=== PATIENT | female | born 1950 | race African-American/Black ===

== ENCOUNTER 2020-01-03 13:01 | Inpatient (IN) ==
[2020-01-03] MEDS ORDERED: AZITHROMYCIN INJ 500 MG in SODIUM CHLORIDE 0.9% 250 ML IV STA (13:28)
[2020-01-03] MEDS ORDERED: PIPERACILLIN/TAZOBACTAM 3,375 MG in SODIUM CHLORIDE 0.9% 100 ML IV STA (13:28)
[2020-01-03] MEDS ORDERED: ACETAMINOPHEN 500 MG TABLET ONE (13:57)
[2020-01-03 14:02] LABS: Basophils % 0.7 % (0.0-0.8); Eosinophils % 1.1 % (0.00-10.9); Hematocrit 31.7 VOL% (35.7-47.0); Hemoglobin 9.9 GM/DL (12.0-16.0); Lymphocytes # 0.7 10*3/uL (1.4-4.0); Lymphocytes % 25.5 % (21.3-54.2); Mean Corpuscular HGB Conc 31.2 GM/DL (32-36); Mean Corpuscular Volume 97.2 FL (87-102); Monocytes % 13.1 % (1.7-12.7); Neutrophils % 59.6 % (38.7-73.9); Platelet Count 103 T/CUMM (130-400); Red Blood Count 3.26 MC/CUMM (3.8-5.5); Red Cell Distribution Width 15.8 % (9.3-17.3); White Blood Count 2.7 T/CUMM (4-12)
[2020-01-03] MEDS ORDERED: ACETAMINOPHEN 650 MG SUPP RECTAL ONE (14:02)
[2020-01-03 14:10] LABS: INR 1.1; PT Patient Result 11.5 SECS (9.8-11.9)
[2020-01-03] MEDS ORDERED: ACETAMINOPHEN 500 MG TABLET PO STA (14:17)
[2020-01-03 14:20] LABS: Albumin 3.1 G/DL (3.4-5.0); Bilirubin,Total 0.5 MG/DL (0.2-1.0); Calcium 8.5 MG/DL (8.5-10.1); Ferritin 1450.3 ng/ml (8-252); Total Protein 7.2 G/DL (6.4-8.3)
[2020-01-03] MEDS ORDERED: GLUCAGON 1 MG VIAL IM PRN (15:39)
[2020-01-03] MEDS ORDERED: DEXTROSE 10% 250 ML BAG IV PRN (15:39)
[2020-01-03] MEDS ORDERED: VANCOMYCIN INJ 1,500 MG in SODIUM CHLORIDE 0.9% 500 ML IV ONE (18:00)
[2020-01-03] MEDS: INSULIN LISPRO 100 UNIT/ML SUBCUT SCH ×2 (18:04→20:16)
[2020-01-03] MEDS: SODIUM CHLORIDE 0.9% 1,000 ML IV SCH (18:14)
[2020-01-03] MEDS: HEPARIN 5,000 UNIT/1 ML VIAL SUBCUT SCH (18:15)
[2020-01-04] MEDS: PIPERACILLIN/TAZOBACTAM 3,375 MG in SODIUM CHLORIDE 0.9% 100 ML IV SCH ×2 (03:00→15:45)
[2020-01-04] MEDS: HEPARIN 5,000 UNIT/1 ML VIAL SUBCUT SCH ×2 (03:24→17:38)
[2020-01-04] MEDS: ACETAMINOPHEN 500 MG TABLET PO PRN (03:25)
[2020-01-04 06:14] LABS: Basophils % 0.7 % (0.0-0.8); Hematocrit 31.3 VOL% (35.7-47.0); Hemoglobin 9.7 GM/DL (12.0-16.0); Immature Granulocytes % 0.7 %; Immature Granulocytes Absolute 0.02 #; Lymphocytes # 0.4 10*3/uL (1.4-4.0); Lymphocytes % 12.3 % (21.3-54.2); Mean Corpuscular Volume 97.5 FL (87-102); Mean Platelet Volume 10.5 FL (9.6-12.0); Monocytes % 8.4 % (1.7-12.7); Neutrophils % 77.9 % (38.7-73.9); Red Blood Count 3.21 MC/CUMM (3.8-5.5); Red Cell Distribution Width 15.8 % (9.3-17.3); White Blood Count 2.9 T/CUMM (4-12)
[2020-01-04 06:38] LABS: Platelet Count 85 T/CUMM (130-400)
[2020-01-04 08:29] LABS: Albumin 2.7 G/DL (3.4-5.0); Bilirubin,Total 0.6 MG/DL (0.2-1.0); Total Protein 6.7 G/DL (6.4-8.3)
[2020-01-04] MEDS: INSULIN LISPRO 100 UNIT/ML SUBCUT SCH ×4 (09:33→20:05)
[2020-01-04] MEDS: SODIUM CHLORIDE 0.9% 1,000 ML IV SCH ×2 (09:33→23:45)
[2020-01-04] MEDS ORDERED: VANCOMYCIN INJ 500 MG in SODIUM CHLORIDE 0.9% 250 ML IV PRN (17:00)
[2020-01-04] MEDS ORDERED: hydrALAZINE 20 MG/1 ML VIAL IV PRN (17:23)
[2020-01-05] MEDS: PIPERACILLIN/TAZOBACTAM 3,375 MG in SODIUM CHLORIDE 0.9% 100 ML IV SCH ×2 (01:40→13:41)
[2020-01-05] MEDS: HEPARIN 5,000 UNIT/1 ML VIAL SUBCUT SCH ×2 (04:31→16:51)
[2020-01-05] MEDS: ACETAMINOPHEN 500 MG TABLET PO PRN ×2 (04:32→20:54)
[2020-01-05 06:37] LABS: Hematocrit 32.2 VOL% (35.7-47.0); Hemoglobin 9.9 GM/DL (12.0-16.0); Immature Granulocytes % 0.3 %; Immature Granulocytes Absolute 0.01 #; Lymphocytes # 0.8 10*3/uL (1.4-4.0); Lymphocytes % 25.8 % (21.3-54.2); Mean Corpuscular HGB Conc 30.7 GM/DL (32-36); Mean Corpuscular Volume 97.9 FL (87-102); Mean Platelet Volume 11.1 FL (9.6-12.0); Monocytes % 9.9 % (1.7-12.7); Platelet Count 92 T/CUMM (130-400); Red Blood Count 3.29 MC/CUMM (3.8-5.5); Red Cell Distribution Width 15.9 % (9.3-17.3)
[2020-01-05 07:06] LABS: Osmolality,Calculated 284.5 MOS/KG (273-304)
[2020-01-05 07:44] LABS: Anisocytosis 1+; Band Neutrophils 11 % (0-10); Hypochromasia Slight; Lymphocytes 27 % (20-55); Macrocytosis 1+; Metamyelocytes 2 %; Nucleated Red Blood Cells 1 (0-5); Platelet Estimate Decreased; Segmented Neutrophils 53 % (50-85); Total Cells Counted 100
[2020-01-05 07:45] LABS: Poikilocytosis Slight
[2020-01-05] MEDS: INSULIN LISPRO 100 UNIT/ML SUBCUT SCH ×4 (08:00→23:46)
[2020-01-05] MEDS: HYDROXYCHLOROQUINE 200 MG TABLET PO SCH ×2 (11:00→20:53)
[2020-01-05] MEDS: ZINC SULFATE 220 MG CAPSULE PO SCH (11:00)
[2020-01-05] MEDS ORDERED: guaiFENesin 200 MG/10 ML UDCUP PO PRN (11:03)
[2020-01-05] MEDS: METOPROLOL TARTRATE 50 MG TABLET PO SCH ×3 (11:40→23:49)
[2020-01-05] MEDS: amLODIPine 10 MG TABLET PO SCH (11:40)
[2020-01-05] MEDS: SODIUM CHLORIDE 0.9% 1,000 ML IV SCH ×2 (13:16→13:17)
[2020-01-05] MEDS: SEVELAMER CARBONATE 800 MG TABLET PO SCH ×3 (15:55→23:50)
[2020-01-05] MEDS ORDERED: VANCOMYCIN INJ 500 MG in SODIUM CHLORIDE 0.9% 100 ML IV ONE ×2 (16:00→18:00)
[2020-01-05] MEDS: CINACALCET 30 MG TABLET PO SCH (16:50)
[2020-01-06] MEDS: PIPERACILLIN/TAZOBACTAM 3,375 MG in SODIUM CHLORIDE 0.9% 100 ML IV SCH ×2 (02:35→16:10)
[2020-01-06] MEDS: HEPARIN 5,000 UNIT/1 ML VIAL SUBCUT SCH ×2 (04:31→16:10)
[2020-01-06] MEDS: INSULIN LISPRO 100 UNIT/ML SUBCUT SCH ×4 (10:36→21:17)
[2020-01-06] MEDS: METOPROLOL TARTRATE 50 MG TABLET PO SCH ×2 (10:37→21:17)
[2020-01-06] MEDS: HYDROXYCHLOROQUINE 200 MG TABLET PO SCH ×2 (10:37→21:17)
[2020-01-06] MEDS: SEVELAMER CARBONATE 800 MG TABLET PO SCH ×3 (10:37→21:17)
[2020-01-06] MEDS: ACETAMINOPHEN 500 MG TABLET PO PRN (10:38)
[2020-01-06] MEDS: amLODIPine 10 MG TABLET PO SCH (10:38)
[2020-01-06] MEDS: CINACALCET 30 MG TABLET PO SCH (16:10)
[2020-01-07] MEDS: PIPERACILLIN/TAZOBACTAM 3,375 MG in SODIUM CHLORIDE 0.9% 100 ML IV SCH ×2 (01:25→13:37)
[2020-01-07] MEDS: ACETAMINOPHEN 500 MG TABLET PO PRN ×3 (01:25→16:32)
[2020-01-07] MEDS: HEPARIN 5,000 UNIT/1 ML VIAL SUBCUT SCH ×2 (04:55→16:12)
[2020-01-07] MEDS: ZINC SULFATE 220 MG CAPSULE PO SCH (09:09)
[2020-01-07] MEDS: amLODIPine 10 MG TABLET PO SCH (09:09)
[2020-01-07] MEDS: HYDROXYCHLOROQUINE 200 MG TABLET PO SCH (09:09)
[2020-01-07] MEDS: METOPROLOL TARTRATE 50 MG TABLET PO SCH ×2 (09:09→20:30)
[2020-01-07] MEDS: SEVELAMER CARBONATE 800 MG TABLET PO SCH ×3 (09:09→20:30)
[2020-01-07] MEDS: INSULIN LISPRO 100 UNIT/ML SUBCUT SCH ×4 (09:14→21:47)
[2020-01-07] MEDS: CINACALCET 30 MG TABLET PO SCH (16:28)
[2020-01-07] MEDS: INSULIN ASPART PROTAMINE/ASPART 70/30 100 UNIT/ML SUBCUT SCH (20:30)
[2020-01-08] MEDS: ACETAMINOPHEN 500 MG TABLET PO PRN (00:09)
[2020-01-08] MEDS ORDERED: KETOROLAC 15 MG/1 ML VIAL IV ONE (01:30)
[2020-01-08] MEDS: PIPERACILLIN/TAZOBACTAM 3,375 MG in SODIUM CHLORIDE 0.9% 100 ML IV SCH ×2 (01:35→14:53)
[2020-01-08] MEDS: HEPARIN 5,000 UNIT/1 ML VIAL SUBCUT SCH ×2 (04:09→16:31)
[2020-01-08 07:00] LABS: Basophils % 0.8 % (0.0-0.8); Eosinophils % 0.4 % (0.00-10.9); Hematocrit 30.5 VOL% (35.7-47.0); Hemoglobin 9.6 GM/DL (12.0-16.0); Immature Granulocytes % 0.8 %; Immature Granulocytes Absolute 0.02 #; Lymphocytes # 0.5 10*3/uL (1.4-4.0); Lymphocytes % 17.5 % (21.3-54.2); Mean Corpuscular HGB Conc 31.5 GM/DL (32-36); Mean Corpuscular Volume 94.4 FL (87-102); Mean Platelet Volume 12.5 FL (9.6-12.0); Monocytes % 3.8 % (1.7-12.7); Neutrophils % 76.7 % (38.7-73.9); Platelet Count 85 T/CUMM (130-400); Red Blood Count 3.23 MC/CUMM (3.8-5.5); Red Cell Distribution Width 16.8 % (9.3-17.3); White Blood Count 2.6 T/CUMM (4-12)
[2020-01-08 07:27] LABS: Calcium 8.3 MG/DL (8.5-10.1); Osmolality,Calculated 285.8 MOS/KG (273-304)
[2020-01-08 07:28] LABS: Hypochromasia 1+; Ovalocytes Slight; Platelet Estimate Decreased
[2020-01-08] MEDS: amLODIPine 10 MG TABLET PO SCH (08:58)
[2020-01-08] MEDS: SEVELAMER CARBONATE 800 MG TABLET PO SCH ×3 (08:58→16:31)
[2020-01-08] MEDS: METOPROLOL TARTRATE 50 MG TABLET PO SCH ×2 (08:58→20:22)
[2020-01-08] MEDS: allopurinoL 100 MG TABLET PO SCH (08:59)
[2020-01-08] MEDS: CITALOPRAM 20 MG TABLET PO SCH (08:59)
[2020-01-08] MEDS: INSULIN LISPRO 100 UNIT/ML SUBCUT SCH ×4 (09:34→22:01)
[2020-01-08] MEDS: CINACALCET 30 MG TABLET PO SCH (16:31)
[2020-01-08] MEDS: INSULIN ASPART PROTAMINE/ASPART 70/30 100 UNIT/ML SUBCUT SCH (21:50)
[2020-01-09] MEDS: PIPERACILLIN/TAZOBACTAM 3,375 MG in SODIUM CHLORIDE 0.9% 100 ML IV SCH ×2 (03:54→14:32)
[2020-01-09] MEDS: HEPARIN 5,000 UNIT/1 ML VIAL SUBCUT SCH ×2 (03:55→17:39)
[2020-01-09] MEDS: INSULIN LISPRO 100 UNIT/ML SUBCUT SCH ×4 (09:24→21:22)
[2020-01-09] MEDS: SEVELAMER CARBONATE 800 MG TABLET PO SCH ×3 (09:24→17:39)
[2020-01-09] MEDS: allopurinoL 100 MG TABLET PO SCH (09:25)
[2020-01-09] MEDS: amLODIPine 10 MG TABLET PO SCH (09:25)
[2020-01-09] MEDS: METOPROLOL TARTRATE 50 MG TABLET PO SCH ×2 (09:25→21:23)
[2020-01-09] MEDS: CITALOPRAM 20 MG TABLET PO SCH (09:25)
[2020-01-09 10:15] LABS: Basophils % 0.4 % (0.0-0.8); Eosinophils # 0.1 10*3/uL (0.0-0.87); Eosinophils % 1.8 % (0.00-10.9); Hematocrit 31.3 VOL% (35.7-47.0); Hemoglobin 9.9 GM/DL (12.0-16.0); Immature Granulocytes % 1.1 %; Immature Granulocytes Absolute 0.03 #; Lymphocytes # 0.3 10*3/uL (1.4-4.0); Lymphocytes % 10.4 % (21.3-54.2); Mean Corpuscular HGB Conc 31.6 GM/DL (32-36); Mean Corpuscular Volume 93.4 FL (87-102); Monocytes % 3.2 % (1.7-12.7); Neutrophils % 83.1 % (38.7-73.9); Platelet Count 125 T/CUMM (130-400); Red Blood Count 3.35 MC/CUMM (3.8-5.5); Red Cell Distribution Width 17.6 % (9.3-17.3); White Blood Count 2.8 T/CUMM (4-12)
[2020-01-09 10:36] LABS: Band Neutrophils 3 % (0-10); Burr Cells Few; Eosinophils 3 % (0-10); Hypochromasia 1+; Lymphocytes 8 % (20-55); Microcytosis 1+; Segmented Neutrophils 85 % (50-85); Total Cells Counted 100
[2020-01-09 10:37] LABS: Acanthocytes Few; Ovalocytes Slight; Platelet Estimate Adequate; Target Cells Slight
[2020-01-09 14:05] LABS: Calcium 8.8 MG/DL (8.5-10.1)
[2020-01-09] MEDS: CINACALCET 30 MG TABLET PO SCH (17:39)
[2020-01-09] MEDS: INSULIN ASPART PROTAMINE/ASPART 70/30 100 UNIT/ML SUBCUT SCH (21:22)
[2020-01-10] MEDS: HEPARIN 5,000 UNIT/1 ML VIAL SUBCUT SCH (04:57)
[2020-01-10] MEDS: PIPERACILLIN/TAZOBACTAM 3,375 MG in SODIUM CHLORIDE 0.9% 100 ML IV SCH (04:57)
[2020-01-10 05:30] LABS: Basophils % 0.4 % (0.0-0.8); Eosinophils # 0.1 10*3/uL (0.0-0.87); Eosinophils % 3.2 % (0.00-10.9); Hematocrit 29.1 VOL% (35.7-47.0); Immature Granulocytes % 1.1 %; Immature Granulocytes Absolute 0.03 #; Lymphocytes # 0.4 10*3/uL (1.4-4.0); Lymphocytes % 15.1 % (21.3-54.2); Mean Corpuscular HGB Conc 30.9 GM/DL (32-36); Mean Corpuscular Volume 93.3 FL (87-102); Mean Platelet Volume 12.5 FL (9.6-12.0); Monocytes % 3.2 % (1.7-12.7); Platelet Count 129 T/CUMM (130-400); Red Blood Count 3.12 MC/CUMM (3.8-5.5); Red Cell Distribution Width 17.6 % (9.3-17.3); White Blood Count 2.9 T/CUMM (4-12)
[2020-01-10 05:52] LABS: Calcium 8.1 MG/DL (8.5-10.1); Osmolality,Calculated 286.3 MOS/KG (273-304)
[2020-01-10 05:55] LABS: Acanthocytes Few; Atypical Lymphocytes Few; Burr Cells Few; Eosinophils 3 % (0-10); Hypochromasia 1+; Lymphocytes 17 % (20-55); Microcytosis 1+; Segmented Neutrophils 78 % (50-85); Total Cells Counted 100
[2020-01-10 05:56] LABS: Ovalocytes Few; Platelet Estimate Adequate; Tear Drop Cells Slight
[2020-01-10] MEDS: INSULIN LISPRO 100 UNIT/ML SUBCUT SCH ×2 (09:51→11:27)
[2020-01-10] MEDS: amLODIPine 10 MG TABLET PO SCH (10:05)
[2020-01-10] MEDS: SEVELAMER CARBONATE 800 MG TABLET PO SCH ×2 (10:05→14:08)
[2020-01-10] MEDS: METOPROLOL TARTRATE 50 MG TABLET PO SCH (10:05)
[2020-01-10] MEDS: CITALOPRAM 20 MG TABLET PO SCH (10:05)
[2020-01-10] MEDS: allopurinoL 100 MG TABLET PO SCH (10:06)
[2020-01-10 11:47] VITALS: BP 111/59
== END 2020-01-10 15:12 | disposition home or self-care (01) | DRG 871 ==
LOC: EDUNIT# → EDBD → N.ED 13:01 → SUATTDRO 15:39 → N.EDINP 15:39 → N.2E 16:12
PROVIDERS: ADMIT Internal Medicine; ATTEND Internal Medicine Cardiovascular Disease

== ENCOUNTER 2020-04-05 08:55 | Inpatient (IN) ==
[2020-04-05] MEDS ORDERED: SODIUM CHLORIDE 0.9% 1,000 ML IV STA (09:49)
[2020-04-05] MEDS ORDERED: cefTRIAXone 1,000 MG in SODIUM CHLORIDE 0.9% 100 ML IV STA (09:49)
[2020-04-05 10:04] LABS: Hemoglobin 9.1 GM/DL (12.0-16.0); Red Cell Distribution Width 14.7 % (9.3-17.3)
[2020-04-05 10:11] LABS: Albumin 1.8 G/DL (3.4-5.0); Basophils % 0.9 % (0.0-0.8); Bilirubin,Total 1.5 MG/DL (0.2-1.0); Calcium 10.7 MG/DL (8.5-10.1); Hematocrit 27.1 VOL% (35.7-47.0); Immature Granulocytes % 0.5 %; Immature Granulocytes Absolute 0.01 #; Lymphocytes # 0.3 10*3/uL (1.4-4.0); Lymphocytes % 16.1 % (21.3-54.2); Mean Corpuscular HGB Conc 33.6 GM/DL (32-36); Mean Corpuscular Volume 92.5 FL (87-102); Monocytes % 8.1 % (1.7-12.7); Neutrophils % 74.4 % (38.7-73.9); Red Blood Count 2.93 MC/CUMM (3.8-5.5); Total Protein 4.5 G/DL (6.4-8.3); White Blood Count 2.1 T/CUMM (4-12)
[2020-04-05 10:17] LABS: Platelet Count 51 T/CUMM (130-400)
[2020-04-05 10:20] LABS: Troponin I 0.115 NG/ML (0.00-0.045)
[2020-04-05] MEDS ORDERED: cefTRIAXone 1,000 MG VIAL ONE (10:22)
[2020-04-05] MEDS ORDERED: SODIUM CHLORIDE 0.9% 100 ML IV ONE (10:22)
[2020-04-05] MEDS ORDERED: MAGNESIUM SULF RIDER 2 GM in PREMIX 1 EACH IV STA (11:06)
[2020-04-05] MEDS ORDERED: SODIUM CHLORIDE 0.9% 1,000 ML IV SCH (11:30)
[2020-04-05 11:35] LABS: Basophils % 0.7 % (0.0-0.8); Hemoglobin 8.3 GM/DL (12.0-16.0); Lymphocytes # 0.3 10*3/uL (1.4-4.0); Lymphocytes % 16.6 % (21.3-54.2); Mean Corpuscular HGB Conc 33.2 GM/DL (32-36); Mean Corpuscular Volume 93.6 FL (87-102); Neutrophils % 78.7 % (38.7-73.9); Red Blood Count 2.67 MC/CUMM (3.8-5.5); White Blood Count 1.5 T/CUMM (4-12)
[2020-04-05 11:40] LABS: Platelet Count 45 T/CUMM (130-400)
[2020-04-05] MEDS ORDERED: MAGNESIUM SULF RIDER 50 ML IV ONE (11:48)
[2020-04-05 11:49] LABS: Band Neutrophils 8 % (0-10); Lymphocytes 15 % (20-55); Metamyelocytes 5 %; Segmented Neutrophils 67 % (50-85); Total Cells Counted 100
[2020-04-05] MEDS ORDERED: POTASSIUM CHLORIDE RIDER 100 ML IV ONE ×2 (11:49)
[2020-04-05 11:51] LABS: Calcium 10.4 MG/DL (8.5-10.1); Osmolality,Calculated 289.8 MOS/KG (273-304)
[2020-04-05 11:52] LABS: Hypochromasia 2+; Microcytosis Slight; Target Cells Slight
[2020-04-05 11:53] LABS: Ovalocytes Few; Platelet Estimate Decreased
[2020-04-05 12:04] LABS: INR 1.5; PT Patient Result 16.2 SECS (9.8-11.9); Partial Thromboplastin Time 72.2 SECS (23.9-33.8)
[2020-04-05] MEDS ORDERED: ACETAMINOPHEN 325 MG TABLET PO PRN (12:06)
[2020-04-05] MEDS ORDERED: LACTULOSE 20 GM/30 ML UDCUP PO PRN (12:06)
[2020-04-05] MEDS ORDERED: ONDANSETRON 4 MG/2 ML VIAL IV PRN (12:06)
[2020-04-05] MEDS: NOREPINEPHRINE 8 MG in SODIUM CHLORIDE 0.9% 242 ML IV PRN ×2 (12:10→22:31)
[2020-04-05 12:30] LABS: Acanthocytes 1+; Anisocytosis 2+; Elliptocytes 1+; Lymphocytes 19 % (20-55); Platelet Estimate Adequate; Segmented Neutrophils 54 % (50-85); Total Cells Counted 100
[2020-04-05 12:31] LABS: Reactive Lymphocytes Slight
[2020-04-05] MEDS ORDERED: AMIODARONE 150 MG/3 ML VIAL ONE (12:33)
[2020-04-05] MEDS ORDERED: NOREPINEPHRINE 4 MG/4 ML VIAL IV ONE ×2 (12:34)
[2020-04-05] MEDS ORDERED: AMIODARONE INJ 150 MG in DEXTROSE 5% 100 ML IV ONE (12:36)
[2020-04-05] MEDS: POTASSIUM CHLORIDE RIDER 10 MEQ in PREMIX 1 EACH IV SCH ×2 (12:45→14:06)
[2020-04-05] MEDS ORDERED: AMIODARONE INJ 450 MG in DEXTROSE 5% 241 ML IV SCH ×2 (13:00→20:00)
[2020-04-05] MEDS ORDERED: VANCOMYCIN INJ 1,000 MG in SODIUM CHLORIDE 0.9% 250 ML IV PRN (14:26)
[2020-04-05] MEDS ORDERED: ALBUMIN 25% 50 GM in PREMIX 1 EACH IV ONE (14:30)
[2020-04-05 15:42] LABS: ABG Base Excess -4.2 MMOL/L (-2.5-2.5); ABG HCO3 20.7 MMOL/L (20-26); ABG Oxygen Saturation 82.4 % (95-100); ABG PCO2 51.3 MM HG (35-48); ABG PO2 51.2 MM HG (80-95); ABG TCO2 21.7 MMOL/L (23-27); Pt O2 Delivery Device Venturi Mask
[2020-04-05] MEDS ORDERED: VANCOMYCIN INJ 1,000 MG in SODIUM CHLORIDE 0.9% 250 ML IV ONE (16:00)
[2020-04-05] MEDS: HEPARIN DRIP 25,000 UNITS/500 ML PREMIX IV SCH (16:00)
[2020-04-05] MEDS: PIPERACILLIN/TAZOBACTAM 3,375 MG in SODIUM CHLORIDE 0.9% 100 ML IV SCH (16:22)
[2020-04-05] MEDS ORDERED: MIDAZOLAM 2 MG/2 ML VIAL IV ONE (16:50)
[2020-04-05] MEDS ORDERED: MIDAZOLAM 2 MG/2 ML VIAL ONE (16:52)
[2020-04-05] MEDS: HYDROCORTISONE 100 MG VIAL IV SCH (17:48)
[2020-04-05 17:50] LABS: ABG Base Excess -4.6 MMOL/L (-2.5-2.5); ABG HCO3 20.6 MMOL/L (20-26); ABG PCO2 25.4 MM HG (35-48); ABG PH 7.463 (7.35-7.45); ABG TCO2 16.8 MMOL/L (23-27); Pt O2 Delivery Device Ventilator
[2020-04-05] MEDS ORDERED: DEXTROSE 50% 25 GM/50 ML VIAL IV ONE (17:52)
[2020-04-05] MEDS: DEXTROSE 50% 25 GM/50 ML VIAL IV PRN ×2 (18:01→18:46)
[2020-04-05] MEDS ORDERED: DEXTROSE 10% 1,000 ML IV SCH (19:00)
[2020-04-05] MEDS ORDERED: GLUCAGON 1 MG VIAL IM PRN (19:12)
[2020-04-05] MEDS: ACETYLCYSTEINE 20% 800 MG/4 ML VIAL RESP TX SCH (19:30)
[2020-04-05] MEDS: ALBUTEROL 2.5 MG/3 ML NEB RESP TX PRN (19:37)
[2020-04-05 20:09] LABS: ABG Base Excess -8.3 MMOL/L (-2.5-2.5); ABG HCO3 15.6 MMOL/L (20-26); ABG Oxygen Saturation 98.9 % (95-100); ABG PCO2 26.1 MM HG (35-48); ABG PH 7.394 (7.35-7.45); ABG PO2 254.8 MM HG (80-95); ABG TCO2 16.4 MMOL/L (23-27)
[2020-04-06] MEDS: HYDROCORTISONE 100 MG VIAL IV SCH ×5 (00:23→23:14)
[2020-04-06] MEDS: INSULIN REGULAR 100 UNIT/ML SUBCUT SCH ×5 (00:23→23:14)
[2020-04-06] MEDS: ACETYLCYSTEINE 20% 800 MG/4 ML VIAL RESP TX SCH ×4 (01:55→19:30)
[2020-04-06] MEDS: PIPERACILLIN/TAZOBACTAM 3,375 MG in SODIUM CHLORIDE 0.9% 100 ML IV SCH (03:44)
[2020-04-06 03:47] LABS: ABG Base Excess -9.3 MMOL/L (-2.5-2.5); ABG Oxygen Saturation 99.2 % (95-100); ABG PCO2 26.8 MM HG (35-48); ABG PH 7.365 (7.35-7.45); ABG PO2 255.2 MM HG (80-95); ABG TCO2 15.8 MMOL/L (23-27); Allen Test Positive; Pt O2 Delivery Device Ventilator
[2020-04-06] MEDS: NOREPINEPHRINE 8 MG in SODIUM CHLORIDE 0.9% 242 ML IV PRN ×3 (05:24→21:33)
[2020-04-06 05:40] LABS: Basophils # 0.1 10*3/uL (0.0-0.2); Basophils % 1.5 % (0.0-0.8); Eosinophils # 0.2 10*3/uL (0.0-0.87); Eosinophils % 3.4 % (0.00-10.9); Hematocrit 23.4 VOL% (35.7-47.0); Hemoglobin 8.1 GM/DL (12.0-16.0); Immature Granulocytes % 0.6 %; Immature Granulocytes Absolute 0.03 #; Lymphocytes # 0.6 10*3/uL (1.4-4.0); Lymphocytes % 12.8 % (21.3-54.2); Mean Corpuscular HGB Conc 34.6 GM/DL (32-36); Mean Corpuscular Volume 91.1 FL (87-102); Monocytes % 5.7 % (1.7-12.7); Red Blood Count 2.57 MC/CUMM (3.8-5.5); Red Cell Distribution Width 15.2 % (9.3-17.3); White Blood Count 4.7 T/CUMM (4-12)
[2020-04-06 05:50] LABS: Platelet Count 36 T/CUMM (130-400)
[2020-04-06 06:30] LABS: Calcium 10.6 MG/DL (8.5-10.1); Osmolality,Calculated 287.4 MOS/KG (273-304); Risk Ratio 3.15; VLDL CHOLESTEROL 18.2 MG/DL
[2020-04-06 06:59] LABS: Parathyroid Hormone Intact 118.1 PG/ML (18.4-80.1)
[2020-04-06 07:52] LABS: Band Neutrophils 8 % (0-10); Hypochromasia 1+; Lymphocytes 17 % (20-55); Metamyelocytes 1 %; Segmented Neutrophils 66 % (50-85); Target Cells Slight; Total Cells Counted 100
[2020-04-06 07:53] LABS: Acanthocytes Few; Anisocytosis 1+; Burr Cells Slight; Poikilocytosis 1+
[2020-04-06 07:54] LABS: Platelet Estimate Decreased
[2020-04-06] MEDS ORDERED: SODIUM CHLORIDE 0.9% IV ONE (08:00)
[2020-04-06] MEDS ORDERED: POTASSIUM CHLORIDE IV ONE (08:00)
[2020-04-06] MEDS ORDERED: MIDAZOLAM 10 MG/2 ML VIAL ONE (08:01)
[2020-04-06] MEDS ORDERED: MIDAZOLAM 2 MG/2 ML VIAL IV ONE (08:14)
[2020-04-06] MEDS ORDERED: VANCOMYCIN INJ 500 MG in SODIUM CHLORIDE 0.9% 100 ML IV PRN (08:15)
[2020-04-06] MEDS ORDERED: SODIUM CHLORIDE 0.9% 250 ML IV ONE (08:19)
[2020-04-06] MEDS ORDERED: PANTOPRAZOLE 40 MG TABLET PO SCH (09:00)
[2020-04-06] MEDS: MEROPENEM 500 MG in SODIUM CHLORIDE 0.9% 100 ML IV SCH (09:22)
[2020-04-06 09:25] LABS: ABG Base Excess -8.7 MMOL/L (-2.5-2.5); ABG HCO3 17.4 MMOL/L (20-26); ABG Oxygen Saturation 99.6 % (95-100); ABG PCO2 27.2 MM HG (35-48); ABG PH 7.367 (7.35-7.45); ABG TCO2 14.6 MMOL/L (23-27); Pt O2 Delivery Device Ventilator
[2020-04-06] MEDS: PANTOPRAZOLE 40 MG VIAL IV SCH (09:30)
[2020-04-06] MEDS ORDERED: ALBUMIN 25% 50 GM in PREMIX 1 EACH IV ONE (14:27)
[2020-04-06] MEDS: HEPARIN DRIP 25,000 UNITS/500 ML PREMIX IV SCH (16:36)
[2020-04-06] MEDS ORDERED: VANCOMYCIN INJ 1,000 MG in SODIUM CHLORIDE 0.9% 250 ML IV ONE (17:00)
[2020-04-06] MEDS: DEXTROSE 10% 500 ML IV SCH (17:29)
[2020-04-06] MEDS: ALBUTEROL 2.5 MG/3 ML NEB RESP TX PRN (19:30)
[2020-04-06] MEDS ORDERED: POTASSIUM CHLORIDE RIDER 20 MEQ in PREMIX 1 EACH IV PRN (21:44)
[2020-04-06] MEDS ORDERED: POTASSIUM CHLORIDE RIDER 10 MEQ in PREMIX 1 EACH IV PRN (21:44)
[2020-04-07] MEDS: ACETYLCYSTEINE 20% 800 MG/4 ML VIAL RESP TX SCH ×4 (02:00→20:10)
[2020-04-07 03:52] LABS: ABG Base Excess -9.3 MMOL/L (-2.5-2.5); ABG HCO3 14.9 MMOL/L (20-26); ABG Oxygen Saturation 98.3 % (95-100); ABG PCO2 25.9 MM HG (35-48); ABG PH 7.379 (7.35-7.45); ABG PO2 158.5 MM HG (80-95); ABG TCO2 15.7 MMOL/L (23-27)
[2020-04-07 04:39] LABS: Basophils # 0.1 10*3/uL (0.0-0.2); Basophils % 1.1 % (0.0-0.8); Hematocrit 18.2 VOL% (35.7-47.0); Immature Granulocytes % 0.7 %; Immature Granulocytes Absolute 0.03 #; Lymphocytes # 0.3 10*3/uL (1.4-4.0); Lymphocytes % 7.8 % (21.3-54.2); Mean Corpuscular HGB Conc 34.6 GM/DL (32-36); Mean Corpuscular Volume 88.3 FL (87-102); Monocytes % 6.2 % (1.7-12.7); Neutrophils % 84.2 % (38.7-73.9); Red Blood Count 2.06 MC/CUMM (3.8-5.5); Red Cell Distribution Width 15.1 % (9.3-17.3); White Blood Count 4.4 T/CUMM (4-12)
[2020-04-07 04:47] LABS: Hemoglobin 6.3 GM/DL (12.0-16.0)
[2020-04-07 04:48] LABS: Platelet Count 8 T/CUMM (130-400)
[2020-04-07 05:01] LABS: Prealbumin 3.4 MG/DL (20-40)
[2020-04-07] MEDS ORDERED: SODIUM CHLORIDE 0.9% 1,000 ML IV PRN ×2 (05:11→05:12)
[2020-04-07 05:46] LABS: Band Neutrophils 6 % (0-10); Lymphocytes 8 % (20-55); Metamyelocytes 9 %; Myelocytes 4 %; Segmented Neutrophils 68 % (50-85)
[2020-04-07 05:49] LABS: Burr Cells 3+; Platelet Estimate Decreased; Target Cells Few
[2020-04-07 05:50] LABS: Elliptocytes 1+
[2020-04-07 05:51] LABS: Acanthocytes Few; Microcytosis 1+; Poikilocytosis 2+
[2020-04-07 05:52] LABS: Total Cells Counted 100
[2020-04-07 05:58] LABS: Calcium 11.7 MG/DL (8.5-10.1)
[2020-04-07] MEDS: INSULIN REGULAR 100 UNIT/ML SUBCUT SCH ×3 (06:28→19:26)
[2020-04-07] MEDS: HYDROCORTISONE 100 MG VIAL IV SCH ×3 (06:28→18:16)
[2020-04-07] MEDS: ALBUTEROL 2.5 MG/3 ML NEB RESP TX PRN ×2 (07:29→12:19)
[2020-04-07] MEDS: PANTOPRAZOLE 40 MG VIAL IV SCH (08:19)
[2020-04-07] MEDS: MEROPENEM 500 MG in SODIUM CHLORIDE 0.9% 100 ML IV SCH (08:19)
[2020-04-07] MEDS: MORPHINE 4 MG/1 ML VIAL IV PRN ×2 (10:01→15:26)
[2020-04-07] MEDS ORDERED: GENTAMICIN INJ 120 MG in PREMIX 1 EACH IV PRN (11:49)
[2020-04-07] MEDS ORDERED: GENTAMICIN INJ 180 MG in SODIUM CHLORIDE 0.9% 100 ML IV ONE (13:00)
[2020-04-07 13:21] LABS: INR 1.9; PT Patient Result 19.8 SECS (9.8-11.9)
[2020-04-07 13:44] LABS: Albumin 2.1 G/DL (3.4-5.0); Bilirubin,Total 2.7 MG/DL (0.2-1.0); Calcium 11.9 MG/DL (8.5-10.1); Total Protein 4.2 G/DL (6.4-8.3)
[2020-04-07 13:53] LABS: Albumin 2.2 G/DL (3.4-5.0); Bilirubin,Direct 1.81 MG/DL (0.0-0.20); Bilirubin,Indirect 0.9 MG/DL (0.0-1.0); Bilirubin,Total 2.7 MG/DL (0.2-1.0); Total Protein 4.1 G/DL (6.4-8.3)
[2020-04-07] MEDS: NOREPINEPHRINE 8 MG in SODIUM CHLORIDE 0.9% 242 ML IV PRN ×2 (14:06→21:15)
[2020-04-07] MEDS ORDERED: PHENYLEPHRINE DRIP 40 MG/250 ML PREMIX IV ONE (17:12)
[2020-04-07] MEDS ORDERED: CALCIUM GLUCONATE 1,000 MG/10 ML VIAL IV ONE (18:01)
[2020-04-07] MEDS: DEXTROSE 10% 500 ML IV SCH (18:30)
[2020-04-08] MEDS: ACETYLCYSTEINE 20% 800 MG/4 ML VIAL RESP TX SCH ×4 (00:14→19:30)
[2020-04-08] MEDS: INSULIN REGULAR 100 UNIT/ML SUBCUT SCH ×4 (00:35→17:20)
[2020-04-08] MEDS: HYDROCORTISONE 100 MG VIAL IV SCH ×4 (00:35→17:20)
[2020-04-08] MEDS: MORPHINE 4 MG/1 ML VIAL IV PRN ×3 (03:00→11:19)
[2020-04-08 04:23] LABS: Hematocrit 25.4 VOL% (35.7-47.0); Hemoglobin 8.8 GM/DL (12.0-16.0); Immature Granulocytes % 2.1 %; Lymphocytes # 0.5 10*3/uL (1.4-4.0); Lymphocytes % 5.6 % (21.3-54.2); Mean Corpuscular HGB Conc 34.6 GM/DL (32-36); Monocytes % 9.7 % (1.7-12.7); Neutrophils % 82.6 % (38.7-73.9); Red Blood Count 2.92 MC/CUMM (3.8-5.5); White Blood Count 9.6 T/CUMM (4-12)
[2020-04-08 04:51] LABS: Platelet Count 15 T/CUMM (130-400)
[2020-04-08 04:55] LABS: ABG Base Excess -2.1 MMOL/L (-2.5-2.5); ABG HCO3 20.4 MMOL/L (20-26); ABG Oxygen Saturation 98.1 % (95-100); ABG PCO2 27.3 MM HG (35-48); ABG PH 7.492 (7.35-7.45); ABG TCO2 21.3 MMOL/L (23-27); Allen Test Positive; Pt O2 Delivery Device Ventilator
[2020-04-08 05:47] LABS: Anisocytosis 2+; Band Neutrophils 12 % (0-10); Lymphocytes 8 % (20-55); Macrocytosis 2+; Metamyelocytes 6 %; Platelet Estimate Decreased; Segmented Neutrophils 63 % (50-85); Target Cells 2+; Total Cells Counted 100
[2020-04-08 05:48] LABS: Hypochromasia 2+; Ovalocytes 1+; Reactive Lymphocytes 2+
[2020-04-08] MEDS: ALBUTEROL 2.5 MG/3 ML NEB RESP TX PRN ×3 (07:19→19:30)
[2020-04-08] MEDS: FAMOTIDINE 20 MG/2 ML VIAL IV SCH (07:38)
[2020-04-08] MEDS ORDERED: GENTAMICIN INJ 120 MG in PREMIX 1 EACH IV ONE (09:00)
[2020-04-08] MEDS ORDERED: NOREPINEPHRINE 4 MG/4 ML VIAL IV ONE (10:41)
[2020-04-08] MEDS: NOREPINEPHRINE 8 MG in SODIUM CHLORIDE 0.9% 242 ML IV PRN (10:43)
[2020-04-08] MEDS: FAT EMULSION 20% 250 ML IV SCH (14:58)
[2020-04-08] MEDS ORDERED: DEXTROSE 10% 1,000 ML IV PRN (17:00)
[2020-04-08] MEDS: MULTIVITAMIN IV SCH (17:19)
[2020-04-08] MEDS: POTASSIUM PHOSPHATE IV SCH (17:19)
[2020-04-08] MEDS: [UNRECOGNIZED DRUG - OTHER] IV SCH (17:19)
[2020-04-08] MEDS: ELECTROLYTE IV SCH (17:19)
[2020-04-09] MEDS: INSULIN REGULAR 100 UNIT/ML SUBCUT SCH ×4 (00:05→18:36)
[2020-04-09] MEDS: HYDROCORTISONE 100 MG VIAL IV SCH ×4 (00:05→18:35)
[2020-04-09] MEDS: ACETYLCYSTEINE 20% 800 MG/4 ML VIAL RESP TX SCH ×4 (02:45→19:52)
[2020-04-09] MEDS: ALBUTEROL 2.5 MG/3 ML NEB RESP TX PRN ×2 (02:45→19:53)
[2020-04-09] MEDS: MORPHINE 4 MG/1 ML VIAL IV PRN (02:52)
[2020-04-09 04:40] LABS: ABG Base Excess -2.4 MMOL/L (-2.5-2.5); ABG HCO3 21.3 MMOL/L (20-26); ABG Oxygen Saturation 98.2 % (95-100); ABG PCO2 32.3 MM HG (35-48); ABG PH 7.437 (7.35-7.45); ABG PO2 122.8 MM HG (80-95); ABG TCO2 22.3 MMOL/L (23-27); Allen Test Positive; Pt O2 Delivery Device Ventilator
[2020-04-09 04:57] LABS: Hemoglobin 9.1 GM/DL (12.0-16.0); Immature Granulocytes % 8.3 %; Immature Granulocytes Absolute 0.86 #; Lymphocytes # 0.6 10*3/uL (1.4-4.0); Lymphocytes % 5.5 % (21.3-54.2); Mean Corpuscular Volume 87.2 FL (87-102); Monocytes % 13.8 % (1.7-12.7); Neutrophils % 72.4 % (38.7-73.9); Red Blood Count 2.98 MC/CUMM (3.8-5.5); Red Cell Distribution Width 16.2 % (9.3-17.3); White Blood Count 10.4 T/CUMM (4-12)
[2020-04-09 05:02] LABS: Platelet Count 18 T/CUMM (130-400)
[2020-04-09 05:33] LABS: Band Neutrophils 1 % (0-10); Lymphocytes 5 % (20-55); Metamyelocytes 5 %; Segmented Neutrophils 74 % (50-85)
[2020-04-09 05:34] LABS: Burr Cells 3+; Hypochromasia 1+; Platelet Estimate Decreased; Target Cells Few
[2020-04-09 05:35] LABS: Schistocytes Few
[2020-04-09 05:38] LABS: Total Cells Counted 100
[2020-04-09 05:39] LABS: Ovalocytes 1+
[2020-04-09 05:42] LABS: Albumin 1.7 G/DL (3.4-5.0); Bilirubin,Total 1.6 MG/DL (0.2-1.0); Calcium 12.9 MG/DL (8.5-10.1); Osmolality,Calculated 293.7 MOS/KG (273-304); Total Protein 4.4 G/DL (6.4-8.3)
[2020-04-09] MEDS: FAMOTIDINE 20 MG/2 ML VIAL IV SCH (08:41)
[2020-04-09] MEDS ORDERED: ZOLEDRONIC ACID 4 MG in PREMIX 1 EACH IV ONE (10:00)
[2020-04-09] MEDS: [UNRECOGNIZED DRUG - OTHER] IV SCH (13:07)
[2020-04-09] MEDS: POTASSIUM PHOSPHATE IV SCH (13:07)
[2020-04-09] MEDS: MULTIVITAMIN IV SCH (13:07)
[2020-04-09] MEDS: ELECTROLYTE IV SCH (13:07)
[2020-04-09] MEDS: FAT EMULSION 20% 250 ML IV SCH (13:58)
[2020-04-09] MEDS: FLUCONAZOLE INJ 150 MG in IV BAG 1 EACH IV SCH (14:47)
[2020-04-09] MEDS ORDERED: INSULIN REGULAR IV SCH (17:00)
[2020-04-09] MEDS ORDERED: GENTAMICIN INJ 120 MG in PREMIX 1 EACH IV ONE (17:00)
[2020-04-09] MEDS ORDERED: [UNRECOGNIZED DRUG - OTHER] IV SCH (17:00)
[2020-04-09] MEDS ORDERED: MULTIVITAMIN IV SCH (17:00)
[2020-04-09] MEDS ORDERED: ELECTROLYTE IV SCH (17:00)
[2020-04-10] MEDS: INSULIN REGULAR 100 UNIT/ML SUBCUT SCH ×4 (00:04→18:10)
[2020-04-10] MEDS: HYDROCORTISONE 100 MG VIAL IV SCH ×4 (00:05→18:10)
[2020-04-10] MEDS: ALBUTEROL 2.5 MG/3 ML NEB RESP TX PRN ×2 (01:06→19:59)
[2020-04-10] MEDS: ACETYLCYSTEINE 20% 800 MG/4 ML VIAL RESP TX SCH ×4 (01:06→19:59)
[2020-04-10 03:19] LABS: ABG Base Excess 3.5 MMOL/L (-2.5-2.5); ABG HCO3 27.6 MMOL/L (20-26); ABG Oxygen Saturation 98.6 % (95-100); ABG PCO2 41.8 MM HG (35-48); ABG PH 7.435 (7.35-7.45); ABG TCO2 25.8 MMOL/L (23-27); Allen Test Positive; Pt O2 Delivery Device Ventilator
[2020-04-10 05:00] LABS: Basophils # 0.1 10*3/uL (0.0-0.2); Basophils % 0.8 % (0.0-0.8); Hematocrit 23.9 VOL% (35.7-47.0); Hemoglobin 8.4 GM/DL (12.0-16.0); Immature Granulocytes % 7.9 %; Immature Granulocytes Absolute 0.57 #; Lymphocytes # 0.7 10*3/uL (1.4-4.0); Lymphocytes % 9.2 % (21.3-54.2); Mean Corpuscular HGB Conc 35.1 GM/DL (32-36); Mean Corpuscular Volume 85.4 FL (87-102); Monocytes % 8.3 % (1.7-12.7); Neutrophils % 73.8 % (38.7-73.9); White Blood Count 7.2 T/CUMM (4-12)
[2020-04-10 05:02] LABS: Platelet Count 7 T/CUMM (130-400)
[2020-04-10 05:25] LABS: Band Neutrophils 4 % (0-10); Hypochromasia 1+; Lymphocytes 9 % (20-55); Ovalocytes Slight; Platelet Estimate Decreased; Segmented Neutrophils 84 % (50-85); Target Cells Few; Total Cells Counted 100
[2020-04-10 05:27] LABS: Albumin 1.3 G/DL (3.4-5.0); Bilirubin,Total 1.4 MG/DL (0.2-1.0); Calcium 11.3 MG/DL (8.5-10.1); Osmolality,Calculated 291.5 MOS/KG (273-304); Total Protein 3.8 G/DL (6.4-8.3)
[2020-04-10] MEDS: MORPHINE 4 MG/1 ML VIAL IV PRN (06:01)
[2020-04-10] MEDS ORDERED: SODIUM CHLORIDE 0.9% 1,000 ML IV PRN ×2 (06:05→07:37)
[2020-04-10] MEDS: FAMOTIDINE 20 MG/2 ML VIAL IV SCH (07:39)
[2020-04-10] MEDS ORDERED: SODIUM PHOSPHATE INJ 40 MMOL in SODIUM CHLORIDE 0.9% 250 ML IV ONE (10:00)
[2020-04-10] MEDS: ELECTROLYTE IV SCH (10:57)
[2020-04-10] MEDS: MULTIVITAMIN IV SCH (10:57)
[2020-04-10] MEDS: INSULIN REGULAR IV SCH (10:57)
[2020-04-10] MEDS: [UNRECOGNIZED DRUG - OTHER] IV SCH (10:57)
[2020-04-10 11:58] VITALS: BP 119/53
[2020-04-10] MEDS: FLUCONAZOLE INJ 150 MG in IV BAG 1 EACH IV SCH (15:07)
[2020-04-10] MEDS: FAT EMULSION 20% 250 ML IV SCH (15:07)
[2020-04-11] MEDS: INSULIN REGULAR 100 UNIT/ML SUBCUT SCH ×4 (00:36→18:10)
[2020-04-11] MEDS: HYDROCORTISONE 100 MG VIAL IV SCH ×4 (00:37→16:37)
[2020-04-11] MEDS: ACETYLCYSTEINE 20% 800 MG/4 ML VIAL RESP TX SCH ×4 (01:12→19:00)
[2020-04-11] MEDS: ALBUTEROL 2.5 MG/3 ML NEB RESP TX PRN ×4 (01:12→19:00)
[2020-04-11 03:37] LABS: ABG Base Excess 1.5 MMOL/L (-2.5-2.5); ABG HCO3 25.5 MMOL/L (20-26); ABG Oxygen Saturation 97.7 % (95-100); ABG PCO2 37.6 MM HG (35-48); ABG PO2 102.4 MM HG (80-95); ABG TCO2 26.7 MMOL/L (23-27); Allen Test Positive; Pt O2 Delivery Device Ventilator
[2020-04-11 04:36] LABS: Basophils # 0.1 10*3/uL (0.0-0.2); Basophils % 0.8 % (0.0-0.8); Hematocrit 22.4 VOL% (35.7-47.0); Hemoglobin 7.9 GM/DL (12.0-16.0); Immature Granulocytes % 2.7 %; Immature Granulocytes Absolute 0.17 #; Lymphocytes # 0.7 10*3/uL (1.4-4.0); Lymphocytes % 10.3 % (21.3-54.2); Mean Corpuscular HGB Conc 35.3 GM/DL (32-36); Mean Corpuscular Volume 86.2 FL (87-102); Monocytes % 9.1 % (1.7-12.7); NRBC # 0.02 10*3/uL; Neutrophils % 77.1 % (38.7-73.9); Red Cell Distribution Width 16.4 % (9.3-17.3); White Blood Count 6.3 T/CUMM (4-12)
[2020-04-11 04:39] LABS: Platelet Count 25 T/CUMM (130-400)
[2020-04-11 04:42] LABS: Albumin 1.5 G/DL (3.4-5.0); Bilirubin,Total 1.5 MG/DL (0.2-1.0); Calcium 11.7 MG/DL (8.5-10.1); Osmolality,Calculated 294.1 MOS/KG (273-304); Total Protein 4.3 G/DL (6.4-8.3)
[2020-04-11 04:59] LABS: Band Neutrophils 1 % (0-10); Lymphocytes 7 % (20-55); Platelet Estimate Decreased; Segmented Neutrophils 81 % (50-85); Total Cells Counted 100
[2020-04-11 05:00] LABS: Hypochromasia 1+; Macrocytosis 1+
[2020-04-11] MEDS ORDERED: GENTAMICIN INJ 120 MG in PREMIX 1 EACH IV ONE (12:00)
[2020-04-11] MEDS: FAMOTIDINE 20 MG/2 ML VIAL IV SCH (12:17)
[2020-04-11] MEDS: FAT EMULSION 20% 250 ML IV SCH (14:45)
[2020-04-11] MEDS: MORPHINE 4 MG/1 ML VIAL IV PRN (16:38)
[2020-04-11] MEDS: INSULIN REGULAR IV SCH (16:59)
[2020-04-11] MEDS: ELECTROLYTE IV SCH (16:59)
[2020-04-11] MEDS: [UNRECOGNIZED DRUG - OTHER] IV SCH (16:59)
[2020-04-11] MEDS: MULTIVITAMIN IV SCH (16:59)
[2020-04-11] MEDS ORDERED: FLUCONAZOLE INJ 400 MG in PREMIX 1 EACH IV ONE (18:00)
[2020-04-12] MEDS: INSULIN REGULAR 100 UNIT/ML SUBCUT SCH ×4 (00:31→18:16)
[2020-04-12] MEDS: ACETYLCYSTEINE 20% 800 MG/4 ML VIAL RESP TX SCH ×4 (01:33→19:30)
[2020-04-12] MEDS: ALBUTEROL 2.5 MG/3 ML NEB RESP TX PRN ×4 (01:33→19:30)
[2020-04-12 04:10] LABS: Basophils % 0.3 % (0.0-0.8); Hematocrit 22.5 VOL% (35.7-47.0); Hemoglobin 7.9 GM/DL (12.0-16.0); Immature Granulocytes % 2.3 %; Immature Granulocytes Absolute 0.23 #; Lymphocytes # 0.7 10*3/uL (1.4-4.0); Lymphocytes % 7.1 % (21.3-54.2); Mean Corpuscular HGB Conc 35.1 GM/DL (32-36); Mean Corpuscular Volume 86.2 FL (87-102); Monocytes % 4.5 % (1.7-12.7); NRBC # 0.03 10*3/uL; Neutrophils % 85.8 % (38.7-73.9); Red Blood Count 2.61 MC/CUMM (3.8-5.5); Red Cell Distribution Width 16.2 % (9.3-17.3); White Blood Count 9.9 T/CUMM (4-12)
[2020-04-12 04:16] LABS: Platelet Count 24 T/CUMM (130-400)
[2020-04-12 04:35] LABS: Calcium 9.6 MG/DL (8.5-10.1); Osmolality,Calculated 288.1 MOS/KG (273-304)
[2020-04-12] MEDS: HYDROCORTISONE 100 MG VIAL IV SCH ×2 (04:37→15:54)
[2020-04-12 04:53] LABS: Band Neutrophils 2 % (0-10); Lymphocytes 7 % (20-55); Myelocytes 1 %; Segmented Neutrophils 87 % (50-85); Total Cells Counted 100
[2020-04-12 04:54] LABS: Acanthocytes 1+; Anisocytosis 1+; Platelet Estimate Decreased; Target Cells 1+
[2020-04-12] MEDS: FAMOTIDINE 20 MG/2 ML VIAL IV SCH (08:00)
[2020-04-12] MEDS ORDERED: MAGNESIUM SULF RIDER 2 GM in PREMIX 1 EACH IV PRN (10:25)
[2020-04-12] MEDS ORDERED: MAGNESIUM SULF RIDER 4 GM in PREMIX 1 EACH IV PRN (10:25)
[2020-04-12 11:40] LABS: ABG Base Excess 4.3 MMOL/L (-2.5-2.5); ABG HCO3 28.7 MMOL/L (20-26); ABG Oxygen Saturation 96.8 % (95-100); ABG PH 7.452 (7.35-7.45); ABG PO2 92.2 MM HG (80-95)
[2020-04-12] MEDS: FAT EMULSION 20% 250 ML IV SCH (15:53)
[2020-04-12] MEDS: [UNRECOGNIZED DRUG - OTHER] IV SCH (15:53)
[2020-04-12] MEDS: MULTIVITAMIN IV SCH (15:53)
[2020-04-12] MEDS: INSULIN REGULAR IV SCH (15:53)
[2020-04-12] MEDS: ELECTROLYTE IV SCH (15:53)
[2020-04-12] MEDS: MORPHINE 4 MG/1 ML VIAL IV PRN (16:45)
[2020-04-13] MEDS: INSULIN REGULAR 100 UNIT/ML SUBCUT SCH ×4 (00:30→19:19)
[2020-04-13] MEDS: ACETYLCYSTEINE 20% 800 MG/4 ML VIAL RESP TX SCH ×4 (01:00→19:09)
[2020-04-13 04:20] LABS: Basophils % 0.3 % (0.0-0.8); Hematocrit 22.5 VOL% (35.7-47.0); Hemoglobin 7.9 GM/DL (12.0-16.0); Immature Granulocytes % 3.9 %; Immature Granulocytes Absolute 0.61 #; Lymphocytes # 0.7 10*3/uL (1.4-4.0); Lymphocytes % 4.6 % (21.3-54.2); Mean Corpuscular HGB Conc 35.1 GM/DL (32-36); Mean Corpuscular Volume 85.9 FL (87-102); Monocytes % 2.5 % (1.7-12.7); NRBC # 0.03 10*3/uL; Neutrophils % 88.7 % (38.7-73.9); Platelet Count 40 T/CUMM (130-400); Red Blood Count 2.62 MC/CUMM (3.8-5.5); Red Cell Distribution Width 16.3 % (9.3-17.3); White Blood Count 15.8 T/CUMM (4-12)
[2020-04-13] MEDS: HYDROCORTISONE 100 MG VIAL IV SCH ×2 (04:27→16:54)
[2020-04-13 04:38] LABS: Calcium 9.6 MG/DL (8.5-10.1); Osmolality,Calculated 291.4 MOS/KG (273-304)
[2020-04-13 04:56] LABS: ABG Base Excess 4.1 MMOL/L (-2.5-2.5); ABG HCO3 28.1 MMOL/L (20-26); ABG Oxygen Saturation 98.5 % (95-100); ABG PCO2 35.1 MM HG (35-48); ABG PH 7.499 (7.35-7.45); ABG PO2 97.5 MM HG (80-95); ABG TCO2 25.3 MMOL/L (23-27); Allen Test Positive; Pt O2 Delivery Device Ventilator
[2020-04-13] MEDS: DEXTROSE 50% 25 GM/50 ML VIAL IV PRN ×3 (06:11→19:33)
[2020-04-13 07:03] LABS: Band Neutrophils 3 % (0-10); Lymphocytes 1 % (20-55); Metamyelocytes 1 %; Platelet Estimate Decreased; Segmented Neutrophils 93 % (50-85); Total Cells Counted 100
[2020-04-13 07:04] LABS: Anisocytosis 1+; Elliptocytes Few; Poikilocytosis 1+; Schistocytes Few; Target Cells 1+
[2020-04-13] MEDS: ALBUTEROL 2.5 MG/3 ML NEB RESP TX PRN ×2 (08:02→12:53)
[2020-04-13] MEDS: FAMOTIDINE 20 MG/2 ML VIAL IV SCH (08:16)
[2020-04-13] MEDS: MORPHINE 4 MG/1 ML VIAL IV PRN (08:17)
[2020-04-13 12:02] LABS: ABG Base Excess 3.1 MMOL/L (-2.5-2.5); ABG HCO3 27.2 MMOL/L (20-26); ABG Oxygen Saturation 98.5 % (95-100); ABG PCO2 43.4 MM HG (35-48); ABG PH 7.417 (7.35-7.45); ABG TCO2 26.1 MMOL/L (23-27); Allen Test Positive; Pt O2 Delivery Device Ventilator
[2020-04-13] MEDS: FAT EMULSION 20% 250 ML IV SCH (16:40)
[2020-04-13] MEDS: [UNRECOGNIZED DRUG - OTHER] IV SCH (16:54)
[2020-04-13] MEDS: MULTIVITAMIN IV SCH (16:54)
[2020-04-13] MEDS: INSULIN REGULAR IV SCH (16:54)
[2020-04-13] MEDS: ELECTROLYTE IV SCH (16:54)
[2020-04-14] MEDS: ACETYLCYSTEINE 20% 800 MG/4 ML VIAL RESP TX SCH ×4 (00:56→19:37)
[2020-04-14] MEDS: INSULIN REGULAR 100 UNIT/ML SUBCUT SCH ×4 (01:47→17:19)
[2020-04-14 04:53] LABS: Basophils # 0.1 10*3/uL (0.0-0.2); Basophils % 0.3 % (0.0-0.8); Eosinophils % 0.1 % (0.00-10.9); Hematocrit 24.3 VOL% (35.7-47.0); Hemoglobin 8.4 GM/DL (12.0-16.0); Immature Granulocytes % 3.7 %; Immature Granulocytes Absolute 0.69 #; Lymphocytes # 0.8 10*3/uL (1.4-4.0); Lymphocytes % 4.3 % (21.3-54.2); Mean Corpuscular HGB Conc 34.6 GM/DL (32-36); Mean Corpuscular Volume 87.7 FL (87-102); Monocytes % 2.6 % (1.7-12.7); Platelet Count 56 T/CUMM (130-400); Red Blood Count 2.77 MC/CUMM (3.8-5.5); Red Cell Distribution Width 16.8 % (9.3-17.3); White Blood Count 18.4 T/CUMM (4-12)
[2020-04-14] MEDS: HYDROCORTISONE 100 MG VIAL IV SCH ×2 (04:57→16:44)
[2020-04-14 05:16] LABS: Band Neutrophils 2 % (0-10); Hypochromasia 1+; Lymphocytes 2 % (20-55); Metamyelocytes 2 %; Segmented Neutrophils 93 % (50-85); Target Cells Slight; Total Cells Counted 100
[2020-04-14 05:16] LABS: Calcium 9.8 MG/DL (8.5-10.1); Osmolality,Calculated 301.8 MOS/KG (273-304)
[2020-04-14 05:17] LABS: Acanthocytes Few; Anisocytosis 1+; Ovalocytes Slight; Platelet Estimate Decreased; Polychromasia Slight
[2020-04-14] MEDS: FAMOTIDINE 20 MG/2 ML VIAL IV SCH (08:55)
[2020-04-14] MEDS: MORPHINE 4 MG/1 ML VIAL IV PRN (10:25)
[2020-04-14] MEDS: DEXTROSE 50% 25 GM/50 ML VIAL IV PRN (11:47)
[2020-04-14] MEDS: FAT EMULSION 20% 250 ML IV SCH (14:23)
[2020-04-14] MEDS: [UNRECOGNIZED DRUG - OTHER] IV SCH (16:37)
[2020-04-14] MEDS: INSULIN REGULAR IV SCH (16:37)
[2020-04-14] MEDS: MULTIVITAMIN IV SCH (16:37)
[2020-04-14] MEDS: ELECTROLYTE IV SCH (16:37)
[2020-04-14] MEDS ORDERED: AMINO ACIDS IV SCH (17:00)
[2020-04-14] MEDS ORDERED: [UNRECOGNIZED DRUG - OTHER] IV SCH (17:00)
[2020-04-14] MEDS ORDERED: MULTIVITAMIN IV SCH ×2 (17:00)
[2020-04-14] MEDS ORDERED: ELECTROLYTE IV SCH ×2 (17:00)
[2020-04-14] MEDS ORDERED: INSULIN REGULAR IV SCH (17:00)
[2020-04-14] MEDS ORDERED: [UNRECOGNIZED DRUG - OTHER] IV SCH (17:00)
[2020-04-14] MEDS ORDERED: FLUCONAZOLE INJ 400 MG in PREMIX 1 EACH IV SCH (18:00)
[2020-04-14] MEDS: ALBUTEROL 2.5 MG/3 ML NEB RESP TX PRN (19:38)
[2020-04-15] MEDS: INSULIN REGULAR 100 UNIT/ML SUBCUT SCH ×2 (00:23→05:30)
[2020-04-15] MEDS: ACETYLCYSTEINE 20% 800 MG/4 ML VIAL RESP TX SCH ×2 (01:32→06:45)
[2020-04-15] MEDS: ALBUTEROL 2.5 MG/3 ML NEB RESP TX PRN (01:33)
[2020-04-15 04:24] LABS: Allen Test Positive; Pt O2 Delivery Device BIPAP
[2020-04-15 04:26] LABS: ABG Base Excess -3.8 MMOL/L (-2.5-2.5); ABG HCO3 20.7 MMOL/L (20-26); ABG PCO2 35.7 MM HG (35-48); ABG PH 7.382 (7.35-7.45); ABG PO2 54.7 MM HG (80-95); ABG TCO2 21.8 MMOL/L (23-27)
[2020-04-15 04:42] LABS: Basophils # 0.1 10*3/uL (0.0-0.2); Basophils % 0.3 % (0.0-0.8); Eosinophils % 0.1 % (0.00-10.9); Hematocrit 26.9 VOL% (35.7-47.0); Hemoglobin 8.9 GM/DL (12.0-16.0); Immature Granulocytes % 2.6 %; Immature Granulocytes Absolute 0.46 #; Lymphocytes # 0.7 10*3/uL (1.4-4.0); Lymphocytes % 4.2 % (21.3-54.2); Mean Corpuscular HGB Conc 33.1 GM/DL (32-36); Mean Corpuscular Volume 89.7 FL (87-102); Monocytes % 2.3 % (1.7-12.7); Neutrophils % 90.5 % (38.7-73.9); Platelet Count 74 T/CUMM (130-400); Red Cell Distribution Width 17.2 % (9.3-17.3); White Blood Count 17.7 T/CUMM (4-12)
[2020-04-15 05:02] LABS: Calcium 10.2 MG/DL (8.5-10.1); Osmolality,Calculated 316.4 MOS/KG (273-304)
[2020-04-15 05:05] LABS: Band Neutrophils 9 % (0-10); Hypochromasia 1+; Lymphocytes 1 % (20-55); Polychromasia Slight; Segmented Neutrophils 89 % (50-85); Total Cells Counted 100
[2020-04-15 05:06] LABS: Acanthocytes Few; Anisocytosis 1+; Ovalocytes Slight
[2020-04-15 05:07] LABS: Platelet Estimate Decreased
[2020-04-15] MEDS: HYDROCORTISONE 100 MG VIAL IV SCH (05:30)
[2020-04-15] MEDS: FAMOTIDINE 20 MG/2 ML VIAL IV SCH (08:04)
[2020-04-15] MEDS ORDERED: INSULIN REGULAR 100 UNIT/ML SUBCUT SCH (12:00)
[2020-04-15] MEDS ORDERED: GENTAMICIN INJ 120 MG in PREMIX 1 EACH IV ONE (17:00)
[2020-04-15] MEDS ORDERED: FLUCONAZOLE INJ 400 MG in PREMIX 1 EACH IV SCH (18:00)
== END 2020-04-15 10:38 | disposition expired | DRG 870 ==
LOC: EDBD → EDUNIT# → N.ED 08:55 → N.EDINP 12:06 → SUATTDRO 12:06 → SUPCPDRO 12:06 → N.ICU 13:40
PROVIDERS: ADMIT Family Medicine; ATTEND Internal Medicine